=== PATIENT | female | born 1950 | race Two or more races ===

== ENCOUNTER → 2024-02-25 | Outpatient (CLI) | payer MEDICARE, SELFPAY ==
[2024-02-25 11:40] LABS: Glucose Estimated Average 192 mg/dL (80-131); Hemoglobin A1C 8.3 % Hgb (4.8-6.0)
[2024-02-25 11:50] LABS: Alanine Aminotransferase 34 U/L (10-49); Albumin, Serum 4.7 gm/dL (3.4-4.8); Albumin/Globulin Ratio 1.5 (1.2-2.2); Alkaline Phosphatase 96 U/L (46-116); Anion Gap 9 (7-16); Aspartate Amino Transferase 17 U/L (0-34); BUN/Creatinine Ratio 34 Ratio (12-20); Bilirubin,Total 0.5 mg/dL (0.3-1.2); Blood Urea Nitrogen 27 mg/dL (9-23); Calcium 10.5 mg/dL (8.3-10.6); Calcium (Corrected) 10.5 mg/dL (8.5-10.1); Chloride 101 mMol/L (98-107); Cholesterol 186 mg/dL (132-200); Creatinine (Component) 0.8 mg/dL (0.6-1.3); Globulin 3.1 gm/dL (2.3-3.5); Glucose 145 mg/dL (74-106); HDL Cholesterol 62 mg/dL (40-60); LDL Cholesterol,Calculated 90 mg/dL (0-130); Osmolality,Calculated 278 (275-295); Potassium 4.8 mMol/L (3.4-5.1); Sodium 135 mMol/L (136-145); Total Protein 7.8 gm/dL (5.7-8.2); Triglycerides 170 mg/dL (30-150); eGFR > 60 See Note
[2024-02-25 11:53] LABS: Parathyroid Hormone Intact 135.8 pg/ml (18.5-88.0)
== END | disposition home or self-care (01) ==
PROVIDERS: PCP Internal Medicine; Referring Provider Internal Medicine; Visit Provider Internal Medicine
DX: E11.9 Type 2 diabetes mellitus without complications (principal); I10 Essential (primary) hypertension; E78.5 Hyperlipidemia, unspecified
CPT/HCPCS: 36415; 80053; 80061; 83036; 83970

== ENCOUNTER 2024-03-15 10:18 | Outpatient (RCR) | payer MEDICARE, SELFPAY ==
--- NOTE | 2024-03-15 11:22 | CTCFLWUP_ITS ---
Patient: INDIANA VICENTE : 1950 Page 2 of 2 FOLLOW UP NOTE DATE OF SERVICE: 03/15/2024 NAME: INDIANA VICENTE ACCOUNT: [id number] : 1950 AGE: 73 INTERVAL HISTORY: Patient doing well have no new complaints. French-speaking so type photography supervisor was used during the visit. ONCOLOGY HISTORY: DIAGNOSIS: Iron deficiency anemia, unspecified [ICD10] D50.9 Thrombocytosis secondary to iron deficiency anemia resolved with Venofer infusions.. 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 Right breast cancer (2006) right mastectomy followed by adjuvant chemotherapy as well as 5 years of a nastrozole. Palpable left axillary lymph node. DATE OF DIAGNOSIS: 2006 STAGE/TNM: Right breast cancer s/p mastectomy followed by adjuvant chemotherapy as her adjuvant anastrozole. No radiation no clinical evidence of recurrence TREATMENT HISTORY: Care?Plan Start?Date Cycle Day Intent VENOfer?200mg?IV?wkly?for?10?weeks 07/03/2021 1 70 Palliative HISTORY OF PRESENT ILLNESS: Indiana Vicente is a 73-year-old SPA speaking female with following history [facility].. 2006: Patient had right mastectomy done for right breast cancer. She was treated with adjuvant chemo therapy followed by adjuvant anastrozole for about 5 years. She did not get radiation therapy. Dr. Merchant was her oncologist. 2013: Patient had a colonoscopy done here in [place]. She does not know the name of her gastroen terologist 04/25/2021: Platelet count 891,000, hemoglobin 10.6, MCV 79, WBC 9.0, ANC 5.1. 06/07/2021: Platelet count 482,000, WBC 10.0, ANC 6.3, hemoglobin 9.1, MCV 73, iron saturation 3%, lambert ritin 8, JAK2 mutation analysis and MPN panel negative for myeloproliferative disorder. 06/20/2021: Platelet count 688,000, WBC 7.6, ANC 4.0, hemoglobin 9.9, MCV 75. 07/03/2021?09/17/2021: The patient had 2 g of Venofer infusions.. 08/02/2021: Platelet count 580,000, WBC 6.6, ANC 3.2, hemoglobin 11.8, MCV 81. 12/11/2021: EGD and colonoscopy? 12/18/2021: Hemoglobin 13.7, MCV 92, WBC 8.0, ANC 4.8, platelets 398,000, iron saturation 37%, ferriti n 365. 01/03/2023: Left breast ultrasound? 02/28/2023: Repeat left breast ultrasound 03/07/2023: Left breast mammogram? 05/07/2023: Left axillary sonography for biopsy? 09/08/2023: Platelet count 338,000, hemoglobin 14.3, MCV 90, WBC 8.0, ANC 3.8. 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 atorvastatin - 40 mg 1 tab Daily 2. diclofenac sodium - 1 12 Every 12 Hours 3. Farxiga - 5 mg 1 tab Daily 4. glipiZIDE - 10 mg 1 tab Twice a Day 5. levothyroxine - 75 mcg 1 tab Daily 6. lisinopril - 20 mg 1 tab Twice a Day 7. metFORMIN - 850 mg 1 tab Twice a Day 8. multivitamin - 1 tab Daily 9. Ozempic - 1 mg/dose (2 mg/1.5 mL) 1 mg Weekly 10. Synthroid - 200 mcg 1 tab Daily 11. Tylenol - 325 mg 1 tab Every 4 Hours Medications Last Reconciled by Damari Rivera MA on 03/15/2024 ALLERGIES: No Known Drug Allergies REVIEW OF SYSTEMS: A complete 14-point review of systems was performed and is negative except as noted in interval histo ry. PHYSICAL EXAMINATION: VITAL SIGNS: Temperature?98.7, B/P?128/72, Oxygen?Saturation?97% Weight?121?lbs PAIN: 3 - Between mild and moderate pain ECOG Performance Status: 0 - Asymptomatic and fully active GENERAL APPEARANCE: Appears well, in no apparent distress, appropriately interactive. HEENT: Normocephalic, no temporal wasting, normal conjunctiva, no scleral icterus, normal hearing, li ps without lesions, neck normal range of motion. CARDIOVASCULAR: Not assessed. PULMONARY: Normal respiratory effort, no respiratory distress or use of accessory muscles, speaking i n full sentences, no tachypnea. EXTREMITIES: No pedal edema or cyanosis. SKIN: Normal skin appearance. NEUROLOGIC: Alert and oriented x4. PSHYCHIATRIC: Appropriate affect, mood normal, behavior normal, intact thought and speech. LABORATORY DATA: I have personally reviewed and interpreted each of the patient?s relevant lab tests, abnormal finding s are below: Date 02/25/24 ??GLUCOSE,RANDOM?(mg/dL) 145?H ??BLOOD?UREA?NITROGEN?(mg/dL) 27?H ??CREATININE?(mg/dL) 0.80 ??SODIUM?(mmol/L) 135?L ??POTASSIUM?(mmol/L) 4.8 ??CHLORIDE?(mmol/L) 101 ??CrCl?(CandG)?(ml/min) 56.81 ??AST/SGOT?(Unit/L) 17 ??ALT/SGPT?(Unit/L) 34 ??ALKALINE?PHOSPHATASE?(Unit/L) 96 ??BILIRUBIN,?TOTAL?(mg/dL) 0.5 ??PROTEIN?TOTAL?(gm/dl) 7.8 ??ALBUMIN,?SERUM?(gm/dl) 4.7 ??GLOBULIN?(gm/dl) 3.1 ??ALBUMIN/GLOBULIN?RATIO 1.5 ??CALCIUM,?SERUM?(mg/dL) 10.5 ??CALCIUM?SERUM?(CORRECTED)?(mg/dL) 10.5?H ASSESSMENT/PLAN: #1 history of iron deficiency no evidence of myeloproliferative disorder. JAK2 mutation as well as MPN panel negative. No CBC today available Ordered labs #2 history of right breast cancer in 2006. Patient had right mastectomy followed by adjuvant chemoth erapy as well as adjuvant anastrozole for 5 years. She did not get radiation therapy. No clinical e vidence of recurrence. Patient have hypercalcemia today. Will repeat labs if patient have persistent hypercalcemia will nee d bone scan to evaluate for any bone metastasis. 1. Patient is scheduled for repeat ultrasound of the left breast as well as left axilla in 6 months a s well as left breast diagnostic mammogram at that time, April 2024 RTC in 1 week to review CBC CMP CBC CMP CA 15-3 RETURN TO CLINIC: Video appointment in 1 week BILLING AND COMPLIANCE: I reviewed external records from providers outside my specialty as summarized above. I spent a total of 50 minutes on this patient?s care on the day of their visit excluding time spent related to any bi lled procedures. This time includes time spent with the patient as well as time spent documenting in the medical record, reviewing patients records and tests, obtaining history, placing orders, communi cating with other healthcare professionals, counseling the patient, family or caregiver, and/or care coordination for the diagnoses above. Electronically Signed by: Isiah Lombardi MD T: 11:20 AM CC: PCP: Samina Levin Referring: Samina Levin This document was completed utilizing speech recognition software. Grammatical errors, random word in sertions, pronoun errors, and incomplete sentences are an occasional consequence of this system due t o software limitations, ambient noise, and hardware issues. Any formal questions or concerns about th e content, text or information contained within the body of this dictation should be directly address ed to the provider for clarification.
== END 2024-03-19 23:59 | disposition home or self-care (01) ==
LOC: SCTC 10:18
PROVIDERS: PCP Internal Medicine; Referring Provider Internal Medicine; Visit Provider Internal Medicine Hematology & Oncology
DX: Z09 Encounter for follow-up examination after completed treatment for conditions other than malignant neoplasm (principal); Z86.2 Personal history of diseases of the blood and blood-forming organs and certain disorders involving the immune mechanism; Z85.3 Personal history of malignant neoplasm of breast; Z90.11 Acquired absence of right breast and nipple; Z92.21 Personal history of antineoplastic chemotherapy; E83.52 Hypercalcemia
CPT/HCPCS: 99213; G0463

== ENCOUNTER → 2024-03-15 | Outpatient (CLI) | payer OTHER, MEDICAID, SELFPAY ==
[2024-03-15 15:29] LABS: Basophils # (Auto) 0.1 Thou/mm3 (0.0-0.2); Basophils % (Auto) 1 % (0-2.5); Eosinophils # (Auto) 0.4 Thou/mm3 (0.0-0.5); Eosinophils % (Auto) 3 % (0-10); Hematocrit 36.8 % (36.0-46.0); Hemoglobin 12.2 g/dL (12.0-16.0); Immature Granulocytes % (Auto) 0 % (0-0); Immature Granulocytes Auto 0.02 Thou/mm3 (0.00-0.00); Lymphocytes # (Auto) 3.1 Thou/mm3 (1.0-4.8); Lymphocytes % (Auto) 31 % (10-50); Mean Corpuscular HGB Conc 33.2 g/dl (31.0-37.0); Mean Corpuscular Volume 90 fL (80-100); Monocytes # (Auto) 0.8 Thou/mm3 (0.0-0.8); Monocytes % (Auto) 8 % (0-12); Neutrophils # (Auto) 5.8 Thou/mm3 (1.8-7.7); Neutrophils % (Auto) 58 % (37-80); Nucleated Red Blood Cell % 0 /100 WBC (0); Platelet Count 355 Thou/mm3 (140-440); RDW Standard Deviation 45.2 fL (36.4-46.3); Red Blood Count 4.07 Miln/mm3 (4.00-5.20); White Blood Count 10.2 Thou/mm3 (3.6-11.0)
[2024-03-15 16:00] LABS: Alanine Aminotransferase 26 U/L (10-49); Albumin, Serum 4.2 gm/dL (3.4-4.8); Albumin/Globulin Ratio 1.6 (1.2-2.2); Alkaline Phosphatase 108 U/L (46-116); Anion Gap 7 (7-16); Aspartate Amino Transferase 11 U/L (0-34); BUN/Creatinine Ratio 21 Ratio (12-20); Bilirubin,Total 0.4 mg/dL (0.3-1.2); Blood Urea Nitrogen 21 mg/dL (9-23); Calcium 10.1 mg/dL (8.3-10.6); Calcium (Corrected) 10.1 mg/dL (8.5-10.1); Chloride 99 mMol/L (98-107); Globulin 2.7 gm/dL (2.3-3.5); Glucose 261 mg/dL (74-106); Osmolality,Calculated 276 (275-295); Potassium 4.9 mMol/L (3.4-5.1); Sodium 132 mMol/L (136-145); Total Protein 6.9 gm/dL (5.7-8.2); eGFR > 60 See Note
[2024-03-15 16:13] LABS: CA 15-3 10.3 U/mL (<32.4)
== END | disposition home or self-care (01) ==
PROVIDERS: PCP Internal Medicine; Referring Provider Internal Medicine Hematology & Oncology; Visit Provider Internal Medicine Hematology & Oncology
DX: D50.9 Iron deficiency anemia, unspecified (principal)
CPT/HCPCS: 36415; 80053; 85025; 86300

== ENCOUNTER 2024-03-22 11:43 | Outpatient (RCR) | payer MEDICARE, MEDICAID, SELFPAY ==
--- NOTE | 2024-03-22 22:16 | CTCFLWUP_ITS ---
Patient: INDIANA VICENTE : 1950 Page 6 of 7 FOLLOW UP NOTE DATE OF SERVICE: 03/22/2024 NAME: INDIANA VICENTE ACCOUNT: [id number] : 1950 AGE: 74 INTERVAL HISTORY: Patient doing well have no new complaints. Yakut-speaking so inbound sales advisor was used during the visit.patient was found to have elevated calcium . labs were done and here to discuss the results. ONCOLOGY HISTORY: DIAGNOSIS: Iron deficiency anemia, unspecified [ICD10] D50.9 Thrombocytosis secondary to iron deficiency anemia resolved with Venofer infusions.. 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 Right breast cancer (2006) right mastectomy followed by adjuvant chemotherapy as well as 5 years of anastrozole. Palpable left axillary lymph node. Hyperparathyroidism DATE OF DIAGNOSIS: 2006 STAGE/TNM: Right breast cancer s/p mastectomy followed by adjuvant chemotherapy as her adjuvant anastrozole. No radiation no clinical evidence of recurrence TREATMENT HISTORY: Care?Plan Start?Date Cycle Day Intent VENOfer?200mg?IV?wkly?for?10?weeks 07/03/2021 1 70 Palliative Zoledronic?Acid?4?mg 03/22/2024 1 90 Maintenance HISTORY OF PRESENT ILLNESS: Indiana Vicente is a 74-year-old SPA speaking female with following history is referred to hematology clinic for thrombocytosis.. 2006: Patient had right mastectomy done for right breast cancer. She was treated with adjuvant chemotherapy followed by adjuvant anastrozole for about 5 years. She did not get radiation therapy. Dr. Merchant was her oncologist. 2013: Patient had a colonoscopy done here in [place]. She does not know the name of her fha underwriter 04/25/2021: Platelet count 891,000, hemoglobin 10.6, MCV 79, WBC 9.0, ANC 5.1. 06/07/2021: Platelet count 482,000, WBC 10.0, ANC 6.3, hemoglobin 9.1, MCV 73, iron saturation 3%, ferritin 8, JAK2 mutation analysis and MPN panel negative for myeloproliferative disorder. 06/20/2021: Platelet count 688,000, WBC 7.6, ANC 4.0, hemoglobin 9.9, MCV 75. 07/03/2021?09/17/2021: The patient had 2 g of Venofer infusions.. 08/02/2021: Platelet count 580,000, WBC 6.6, ANC 3.2, hemoglobin 11.8, MCV 81. 12/11/2021: EGD and colonoscopy? 12/18/2021: Hemoglobin 13.7, MCV 92, WBC 8.0, ANC 4.8, platelets 398,000, iron saturation 37%, ferritin 365. 01/03/2023: Left breast ultrasound? 02/28/2023: Repeat left breast ultrasound 03/07/2023: Left breast mammogram? 05/07/2023: Left axillary sonography for biopsy? 09/08/2023: Platelet count 338,000, hemoglobin 14.3, MCV 90, WBC 8.0, ANC 3.8. 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 atorvastatin - 40 mg 1 tab Daily 2. diclofenac sodium - 1 12 Every 12 Hours 3. Farxiga - 5 mg 1 tab Daily 4. glipiZIDE - 10 mg 1 tab Twice a Day 5. levothyroxine - 75 mcg 1 tab Daily 6. lisinopril - 20 mg 1 tab Twice a Day 7. metFORMIN - 850 mg 1 tab Twice a Day 8. multivitamin - 1 tab Daily 9. Ozempic - 1 mg/dose (2 mg/1.5 mL) 1 mg Weekly 10. Synthroid - 200 mcg 1 tab Daily 11. Tylenol - 325 mg 1 tab Every 4 Hours Medications Last Reconciled by Imelda Alarcon MA on 03/22/2024 ALLERGIES: No Known Drug Allergies REVIEW OF SYSTEMS: A complete 14-point review of systems was performed and is negative except as noted in interval history. PHYSICAL EXAMINATION: VITAL SIGNS: Temperature?98.9, B/P?141/69, Oxygen?Saturation?97% Weight?123?lbs (Change?since?03/15/24:?2?lbs) PAIN: 8 - Very severe pain ECOG Performance Status: 0 - Asymptomatic and fully active GENERAL APPEARANCE: Appears well, in no apparent distress, appropriately interactive. HEENT: Normocephalic, no temporal wasting, normal conjunctiva, no scleral icterus, normal hearing, lips without lesions, neck normal range of motion. CARDIOVASCULAR: Not assessed. PULMONARY: Normal respiratory effort, no respiratory distress or use of accessory muscles, speaking in full sentences, no tachypnea. EXTREMITIES: No pedal edema or cyanosis. SKIN: Normal skin appearance. NEUROLOGIC: Alert and oriented x4. PSHYCHIATRIC: Appropriate affect, mood normal, behavior normal, intact thought and speech. LABORATORY DATA: I have personally reviewed and interpreted each of the patient?s relevant lab tests, abnormal findings are below: Date 03/15/24 ??WHITE?BLOOD?COUNT?(Thou/mm3) 10.2 ??RED?BLOOD?COUNT?(Miln/mm3) 4.07 ??HEMOGLOBIN?(gm/dl) 12.2 ??HEMATOCRIT?(%) 36.8 ??PLATELET?COUNT?(Thou/mm3) 355 ??NEUTROPHILS?%,?AUTO?(%) 58 ??LYMPH?%,?AUTO?(%) 31 ??NEUTROPHILS,?AUTO?(Thou/mm3) 5.8 ASSESSMENT/PLAN: #1 history of iron deficiency no evidence of myeloproliferative disorder. JAK2 mutation as well as MPN panel negative. #2 history of right breast cancer in 2006. Patient had right mastectomy followed by adjuvant chemotherapy as well as adjuvant anastrozole for 5 years. She did not get radiation therapy. No clinical evidence of recurrence. Patient have hypercalcemia today. Will repeat labs if patient have persistent hypercalcemia will need bone scan to evaluate for any bone metastasis. #3 Hyperthyroidism PTH elevated Calcium normal Refer to endocrinology ORDERS: Cbc,cmp,calcium Nuclear bone scan Dental evaluation for zometa RETURN TO CLINIC: BILLING AND COMPLIANCE: I reviewed external records from providers outside my specialty as summarized above. I spent a total of 50 minutes on this patient?s care on the day of their visit excluding time spent related to any billed procedures. This time includes time spent with the patient as well as time spent documenting in the medical record, reviewing patients records and tests, obtaining history, placing orders, communicating with other healthcare professionals, counseling the patient, family or caregiver, and/or care coordination for the diagnoses above. Electronically Signed by: Isiah Lombardi MD T: 10:14 PM CC: PCP: Samina Levin Referring: Samina Levin This document was completed utilizing speech recognition software. Grammatical errors, random word insertions, pronoun errors, and incomplete sentences are an occasional consequence of this system due to software limitations, ambient noise, and hardware issues. Any formal questions or concerns about the content, text or information contained within the body of this dictation should be directly addressed to the provider for clarification.
== END 2024-04-16 23:59 | disposition home or self-care (01) ==
LOC: SCTC 11:43
PROVIDERS: PCP Internal Medicine; Referring Provider Internal Medicine; Visit Provider Internal Medicine Hematology & Oncology
DX: Z71.2 Person consulting for explanation of examination or test findings (principal); E83.52 Hypercalcemia; Z85.3 Personal history of malignant neoplasm of breast; Z90.11 Acquired absence of right breast and nipple; E05.90 Thyrotoxicosis, unspecified without thyrotoxic crisis or storm; Z86.2 Personal history of diseases of the blood and blood-forming organs and certain disorders involving the immune mechanism
CPT/HCPCS: 99212; G0463

== ENCOUNTER → 2024-04-07 | Outpatient (CLI) | payer MEDICARE, MEDICAID, SELFPAY ==
--- NOTE | 2024-04-07 09:00 | XR_ITS ---
Examination: Knee, right , 3 views Technique: Knee AP, lateral, oblique 3 views Date and time of exam: April 07, 2024 0909 hours INDICATIONS: Right knee pain and swelling beginning one week ago FINDINGS: Total right knee arthroplasty. Satisfactory alignment. No loosening of the prosthetic components. No fracture Prominent osteopenia IMPRESSION: Total right knee arthroplasty with satisfactory alignment
== END | disposition home or self-care (01) ==
PROVIDERS: PCP Internal Medicine; Referring Provider Internal Medicine; Visit Provider Internal Medicine
DX: M25.561 Pain in right knee (principal); Z96.651 Presence of right artificial knee joint
CPT/HCPCS: 73562

== ENCOUNTER → 2024-04-27 | Outpatient (CLI) | payer MEDICARE, MEDICAID, SELFPAY ==
--- NOTE | 2024-04-27 13:30 | XR_ITS ---
Examination: Bone scan whole body, radioisotope Date and time of exam: April 27, 2024 1346 hrs. Indications: Diagnosis right breast carcinoma 2017 post mastectomy chemotherapy, bilateral knee pain Technique: Study has been performed with intravenous administration of 24 mci 99M technetium MDP. Anterior, posterior whole body images are obtained. Images have been obtained including the lower extremities. Findings: Abnormal increased uptake L3 L5 and at several sites in the thoracic spine as well as C4 on the left side in the neck Impression: Positive bone scan Recommend plain films AP pelvis, lumbar spine, thoracic spine, cervical spine follow-up
== END | disposition home or self-care (01) ==
PROVIDERS: PCP Internal Medicine; Referring Provider Internal Medicine Hematology & Oncology; Visit Provider Internal Medicine Hematology & Oncology
DX: R93.7 Abnormal findings on diagnostic imaging of other parts of musculoskeletal system (principal)
CPT/HCPCS: 78306; A9503

== ENCOUNTER → 2024-05-10 | Outpatient (CLI) | payer MEDICARE, MEDICAID, SELFPAY ==
--- NOTE | 2024-05-10 10:00 | XR_ITS ---
Examination: Breast ultrasound, unilateral, left complete Date and time of exam: May 10, 2024 1005 hours INDICATIONS: Personal history right breast cancer mastectomy 2006, prominent lymph nodes in the left axillary region on mammogram March 07, 2023 Technique: Real-time schmidt scale ultrasonographic imaging performed left breast including all 4 quadrants as well as nipple retroareolar and axillary region. Findings: No cystic or solid breast mass Left axillary lymph node 3.3 x 2.6 cm IMPRESSION: BI-RADS Category 3: Probably benign findings Recommend 1 additional 3-6 month follow-up left breast axillary sonography to document stability of enlarged left axillary lymph node
--- NOTE | 2024-05-10 10:30 | XR_ITS ---
Examination: Diagnostic digital mammography, unilateral, left Computer aided detection 3-D breast Tomosynthesis, unilateral Date and time of exam: May 10, 2024 0959 hours Compared to mammograms dating to January 09, 2021 INDICATIONS: Personal history right breast cancer status post mastectomy 2005 Technique: Nonmagnified MLO, CC views of the left breast have been obtained, reconstructed from 3-D Tomosynthesis images. R2 computer aided detection program utilized for evaluation of suspicious masses and/or abnormal calcifications. 3-D Tomosynthesis images obtained. Findings: The breast is heterogeneously dense, which may obscure small masses 8mm oval mass inner upper left breast partially marginated anterior depth Impression: BI-RADS category 0: Incomplete: Need additional imaging evaluation 8mm oval mass inner upper left breast, recommend follow-up spot tomographic views of this mass as well as left breast sonography to complete the workup
== END | disposition home or self-care (01) ==
PROVIDERS: PCP Internal Medicine; Referring Provider Internal Medicine Hematology & Oncology; Visit Provider Internal Medicine Hematology & Oncology
DX: N63.22 Unspecified lump in the left breast, upper inner quadrant (principal); R59.0 Localized enlarged lymph nodes
CPT/HCPCS: 76641; 77061; 77065; G0279

== ENCOUNTER → 2024-05-18 | Outpatient (CLI) | payer MEDICARE, MEDICAID, SELFPAY ==
[2024-05-18 08:37] LABS: Basophils % (Auto) 0 % (0-2.5); Eosinophils # (Auto) 0.1 Thou/mm3 (0.0-0.5); Eosinophils % (Auto) 1 % (0-10); Hematocrit 41.6 % (36.0-46.0); Hemoglobin 14.2 g/dL (12.0-16.0); Immature Granulocytes % (Auto) 0 % (0-0); Immature Granulocytes Auto 0.04 Thou/mm3 (0.00-0.00); Lymphocytes # (Auto) 2.9 Thou/mm3 (1.0-4.8); Lymphocytes % (Auto) 26 % (10-50); Mean Corpuscular HGB Conc 34.1 g/dl (31.0-37.0); Mean Corpuscular Volume 88 fL (80-100); Monocytes # (Auto) 0.6 Thou/mm3 (0.0-0.8); Monocytes % (Auto) 6 % (0-12); Neutrophils # (Auto) 7.4 Thou/mm3 (1.8-7.7); Neutrophils % (Auto) 67 % (37-80); Nucleated Red Blood Cell % 0 /100 WBC (0); Platelet Count 428 Thou/mm3 (140-440); RDW Standard Deviation 41.1 fL (36.4-46.3); Red Blood Count 4.73 Miln/mm3 (4.00-5.20)
[2024-05-18 08:56] LABS: Alanine Aminotransferase 58 U/L (10-49); Albumin, Serum 4.4 gm/dL (3.4-4.8); Albumin/Globulin Ratio 1.5 (1.2-2.2); Alkaline Phosphatase 72 U/L (46-116); Anion Gap 6 (7-16); Aspartate Amino Transferase 27 U/L (0-34); BUN/Creatinine Ratio 21 Ratio (12-20); Bilirubin,Total 0.6 mg/dL (0.3-1.2); Blood Urea Nitrogen 17 mg/dL (9-23); Calcium 9.4 mg/dL (8.3-10.6); Calcium (Corrected) 9.4 mg/dL (8.5-10.1); Carbon Dioxide 27.7 mMol/L (20.0-31.0); Chloride 100 mMol/L (98-107); Creatinine (Component) 0.8 mg/dL (0.6-1.3); Globulin 2.9 gm/dL (2.3-3.5); Glucose 179 mg/dL (74-106); Osmolality,Calculated 273 (275-295); Potassium 4.9 mMol/L (3.4-5.1); Sodium 134 mMol/L (136-145); Total Protein 7.3 gm/dL (5.7-8.2); eGFR > 60 See Note
== END | disposition home or self-care (01) ==
LOC: SCTO 07:53
PROVIDERS: PCP Internal Medicine; Referring Provider Internal Medicine Hematology & Oncology; Visit Provider Internal Medicine Hematology & Oncology
DX: D50.9 Iron deficiency anemia, unspecified (principal)
CPT/HCPCS: 36415; 80053; 85025

== ENCOUNTER → 2024-07-05 | Outpatient (CLI) | payer MEDICARE, MEDICAID, SELFPAY ==
[2024-07-05 09:17] LABS: Collection Type, Urine Clean Catch; RBC,Urine 0 /hpf (0-3); Squamous Epithelial Cell,Urine 0 /hpf (0-5)
[2024-07-05 10:01] LABS: Basophils # (Auto) 0.1 Thou/mm3 (0.0-0.2); Basophils % (Auto) 1 % (0-2.5); Eosinophils # (Auto) 0.4 Thou/mm3 (0.0-0.5); Eosinophils % (Auto) 5 % (0-10); Hematocrit 39.1 % (36.0-46.0); Hemoglobin 12.8 g/dL (12.0-16.0); Immature Granulocytes % (Auto) 0 % (0-0); Immature Granulocytes Auto 0.02 Thou/mm3 (0.00-0.00); Lymphocytes # (Auto) 2.9 Thou/mm3 (1.0-4.8); Lymphocytes % (Auto) 39 % (10-50); Mean Corpuscular HGB Conc 32.7 g/dl (31.0-37.0); Mean Corpuscular Volume 92 fL (80-100); Monocytes # (Auto) 0.5 Thou/mm3 (0.0-0.8); Monocytes % (Auto) 6 % (0-12); Neutrophils # (Auto) 3.5 Thou/mm3 (1.8-7.7); Neutrophils % (Auto) 48 % (37-80); Nucleated Red Blood Cell % 0 /100 WBC (0); Platelet Count 367 Thou/mm3 (140-440); RDW Standard Deviation 44.1 fL (36.4-46.3); Red Blood Count 4.26 Miln/mm3 (4.00-5.20); White Blood Count 7.4 Thou/mm3 (3.6-11.0)
[2024-07-05 10:28] LABS: Bilirubin,Urine Negative (Negative); Blood,Urine Negative (Negative); Clarity,Urine Clear (Clear/Hazy); Color,Urine Colorless (Lt Yel-Yel); Glucose, Urine Negative (Negative); Ketones,Urine Negative (Negative); Leukocyte Esterase,Urine Negative (Negative); Nitrite,Urine Negative (Negative); PH,Urine 6.5 (5.0-7.0); Protein,Urine Negative (Neg - Trace); Urobilinogen,Urine Negative mg/dL (0.0-1.0); WBC,Urine < 1 /hpf (0-5)
[2024-07-05 11:04] LABS: Glucose Estimated Average 166 mg/dL (80-131); Hemoglobin A1C 7.4 % Hgb (4.8-6.0)
[2024-07-05 11:06] LABS: Parathyroid Hormone Intact 88.1 pg/ml (18.5-88.0)
[2024-07-05 11:13] LABS: Alanine Aminotransferase 27 U/L (10-49); Albumin, Serum 4.4 gm/dL (3.4-4.8); Albumin/Globulin Ratio 1.5 (1.2-2.2); Alkaline Phosphatase 60 U/L (46-116); Anion Gap 8 (7-16); Aspartate Amino Transferase 22 U/L (0-34); BUN/Creatinine Ratio 19 Ratio (12-20); Bilirubin,Total 0.6 mg/dL (0.3-1.2); Blood Urea Nitrogen 13 mg/dL (9-23); Calcium 8.9 mg/dL (8.3-10.6); Calcium (Corrected) 8.9 mg/dL (8.5-10.1); Carbon Dioxide 24.9 mMol/L (20.0-31.0); Cardiac Risk Estimate 2.5 RATIO (3.7-5.6); Chloride 103 mMol/L (98-107); Cholesterol 161 mg/dL (132-200); Creatinine (Component) 0.7 mg/dL (0.6-1.3); Globulin 2.9 gm/dL (2.3-3.5); Glucose 141 mg/dL (74-106); HDL Cholesterol 65 mg/dL (40-60); LDL Cholesterol,Calculated 77 mg/dL (0-130); Osmolality,Calculated 274 (275-295); Potassium 4.7 mMol/L (3.4-5.1); Sodium 136 mMol/L (136-145); Total Protein 7.3 gm/dL (5.7-8.2); Triglycerides 97 mg/dL (30-150); eGFR > 60 See Note
[2024-07-05 11:30] LABS: Creatinine MALB Rnd Ur 33 mg/dL (30-125); Microalbumin Creat Ratio 12 mg/gCrea (<30); Microalbumin, Random Urine 4 mg/L (0-300)
== END | disposition home or self-care (01) ==
PROVIDERS: PCP Internal Medicine; Referring Provider Internal Medicine; Visit Provider Internal Medicine
DX: E11.9 Type 2 diabetes mellitus without complications (principal); I10 Essential (primary) hypertension; E78.5 Hyperlipidemia, unspecified
CPT/HCPCS: 36415; 80053; 80061; 81001; 82043; 82570; 83036; 83970; 85025

== ENCOUNTER → 2024-07-07 | Outpatient (CLI) | payer MEDICARE, MEDICAID, SELFPAY ==
[2024-07-07 08:33] LABS: Basophils # (Auto) 0.1 Thou/mm3 (0.0-0.2); Basophils % (Auto) 1 % (0-2.5); Eosinophils # (Auto) 0.4 Thou/mm3 (0.0-0.5); Eosinophils % (Auto) 6 % (0-10); Hematocrit 37.5 % (36.0-46.0); Hemoglobin 12.8 g/dL (12.0-16.0); Immature Granulocytes % (Auto) 0 % (0-0); Immature Granulocytes Auto 0.01 Thou/mm3 (0.00-0.00); Lymphocytes # (Auto) 3.3 Thou/mm3 (1.0-4.8); Lymphocytes % (Auto) 45 % (10-50); Mean Corpuscular HGB Conc 34.1 g/dl (31.0-37.0); Mean Corpuscular Hemoglobin 30.1 pg (25.0-35.0); Mean Corpuscular Volume 88 fL (80-100); Monocytes # (Auto) 0.5 Thou/mm3 (0.0-0.8); Monocytes % (Auto) 8 % (0-12); Neutrophils # (Auto) 2.9 Thou/mm3 (1.8-7.7); Neutrophils % (Auto) 40 % (37-80); Nucleated Red Blood Cell % 0 /100 WBC (0); Platelet Count 328 Thou/mm3 (140-440); RDW Standard Deviation 42.2 fL (36.4-46.3); Red Blood Count 4.25 Miln/mm3 (4.00-5.20); White Blood Count 7.2 Thou/mm3 (3.6-11.0)
[2024-07-07 08:47] LABS: Alanine Aminotransferase 28 U/L (10-49); Albumin, Serum 4.4 gm/dL (3.4-4.8); Albumin/Globulin Ratio 1.6 (1.2-2.2); Alkaline Phosphatase 68 U/L (46-116); Anion Gap 8 (7-16); Aspartate Amino Transferase 18 U/L (0-34); BUN/Creatinine Ratio 18 Ratio (12-20); Bilirubin,Total 0.6 mg/dL (0.3-1.2); Blood Urea Nitrogen 14 mg/dL (9-23); Calcium 9.3 mg/dL (8.3-10.6); Calcium (Corrected) 9.3 mg/dL (8.5-10.1); Chloride 101 mMol/L (98-107); Creatinine (Component) 0.8 mg/dL (0.6-1.3); Globulin 2.7 gm/dL (2.3-3.5); Glucose 139 mg/dL (74-106); Osmolality,Calculated 274 (275-295); Potassium 5.3 mMol/L (3.4-5.1); Sodium 136 mMol/L (136-145); Total Protein 7.1 gm/dL (5.7-8.2); eGFR > 60 See Note
== END | disposition home or self-care (01) ==
LOC: SCTO 07:45
PROVIDERS: PCP Internal Medicine; Referring Provider Internal Medicine Hematology & Oncology; Visit Provider Internal Medicine Hematology & Oncology
DX: D50.9 Iron deficiency anemia, unspecified (principal)
CPT/HCPCS: 36415; 80053; 85025

== ENCOUNTER 2024-07-13 10:57 | Outpatient (RCR) | payer MEDICARE, MEDICAID, SELFPAY ==
--- NOTE | 2024-07-08 14:18 | CTCFLWUP_ITS ---
Patient: INDIA[place] VICENTE : 1950 Page 2 of 2 FOLLOW UP NOTE DATE OF SERVICE: 07/01/2024 NAME: INDIANA VICENTE ACCOUNT: [id number] : 1950 AGE: 74 INTERVAL HISTORY: Occitan-speaking so switch coupler was used during the visit. Subjective: Chief Complaint Follow-up for iron deficiency, breast cancer management, bone health concerns History of Present Illness Jules mane, a patient with a history of right breast cancer treated with right mastectomy, chemotherapy, and 5 years of letrozole, presents for follow-up of iron deficiency and ongoing cancer care. The patient has a history of left axillary lymph node involvement and received iron infusions for 10 weeks in 2021. The patient's iron deficiency appears to be improving, with hemoglobin now at 14.2. However, there are concerns about possible absorption issues or colon blood loss. The patient previously underwent colonoscopy and endoscopy, which revealed polyps and an ulcer. These were treated with Protonix for 3 months, which has since been discontinued. The patient currently reports no acid reflux symptoms. The patient is experiencing bone pain, likely due to weak bones and lack of exercise. Menopause has contributed to bone weakening. The patient's calcium levels are elevated, and their parathyroid hormone (PTH) level was abnormally high at 135.8, indicating hyperparathyroidism. They are currently taking cinacalcet 60 mg for this condition. Treatment adherence is noted, with the patient having completed iron infusions as prescribed. However, the planned start of zoledronic acid (Zometa) for bone health in March 2024 was delayed due to dental clearance issues. The patient is awaiting dental clearance to begin this treatment. The patient has an upcoming referral to an service delivery management consultant scheduled for January. Their platelets, which were previously elevated, have improved following the resolution of iron deficiency. Medications and Supplements - Letrozole - Taken for 5 years - Iron infusions - Administered for 10 weeks in 2021 - Protonix - Taken for 3 months - Discontinued - Treated polyps and ulcer - Cinacalcet 60 mg Review of Systems Musculoskeletal: Positive for bone pain. Gastrointestinal: Negative for acid reflux. Objective: Laboratory, Imaging, and Diagnostic Test Results - Hemoglobin: 14.2 g/dL (improved) - Platelets: Improved (previously elevated) - PTH: 135.8 (abnormal, elevated) - Calcium: High - Bone scan: Nonspecific activity in L3-L5 - Previous colonoscopy and endoscopy: Polyps and ulcer found ONCOLOGY HISTORY:?[facility] Oncology Hx? DIAGNOSIS: Iron deficiency anemia, unspecified [ICD10] D50.9 Thrombocytosis secondary to iron deficiency anemia resolved with Venofer infusions.. 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 Right breast cancer (2006) right mastectomy followed by adjuvant chemotherapy as well as 5 years of anastrozole. Palpable left axillary lymph node. Hyperparathyroidism DATE OF DIAGNOSIS: 2006 STAGE/TNM: Right breast cancer s/p mastectomy followed by adjuvant chemotherapy as her adjuvant anastrozole. No radiation no clinical evidence of recurrence TREATMENT HISTORY: Care?Plan Start?Date Cycle Day Intent VENOfer?200mg?IV?wkly?for?10?weeks 07/03/2021 1 70 Palliative Zoledronic?Acid?4?mg 03/22/2024 1 90 Maintenance HISTORY OF PRESENT ILLNESS: [place] Vicente is a 74-year-old S[place] speaking female with following history is referred to hematology clinic for thrombocytosis.. 2006: Patient had right mastectomy done for right breast cancer. She was treated with adjuvant chemotherapy followed by adjuvant anastrozole for about 5 years. She did not get radiation therapy. Dr. Merchant was her oncologist. 2013: Patient had a colonoscopy done here in [place]. She does not know the name of her rn transfer 04/25/2021: Platelet count 891,000, hemoglobin 10.6, MCV 79, WBC 9.0, ANC 5.1. 06/07/2021: Platelet count 482,000, WBC 10.0, ANC 6.3, hemoglobin 9.1, MCV 73, iron saturation 3%, ferritin 8, JAK2 mutation analysis and MPN panel negative for myeloproliferative disorder. 06/20/2021: Platelet count 688,000, WBC 7.6, ANC 4.0, hemoglobin 9.9, MCV 75. 07/03/2021?09/17/2021: The patient had 2 g of Venofer infusions.. 08/02/2021: Platelet count 580,000, WBC 6.6, ANC 3.2, hemoglobin 11.8, MCV 81. 12/11/2021: EGD and colonoscopy? 12/18/2021: Hemoglobin 13.7, MCV 92, WBC 8.0, ANC 4.8, platelets 398,000, iron saturation 37%, ferritin 365. 01/03/2023: Left breast ultrasound? 02/28/2023: Repeat left breast ultrasound 03/07/2023: Left breast mammogram? 05/07/2023: Left axillary sonography for biopsy? 09/08/2023: Platelet count 338,000, hemoglobin 14.3, MCV 90, WBC 8.0, ANC 3.8. 10/06/2023: CT scan of the chest without IV contrast 10/28/2003: Ultrasound of the left breast 10/28/2023: Left breast diagnostic mammogram OTHER MEDICAL HISTORY/CONDITIONS: FAMILY HISTORY: ?Clone Family Hx? 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 atorvastatin - 40 mg 1 tab Daily 2. diclofenac sodium - 1 12 Every 12 Hours 3. Farxiga - 5 mg 1 tab Daily 4. glipiZIDE - 10 mg 1 tab Twice a Day 5. levothyroxine - 75 mcg 1 tab Daily 6. lisinopril - 20 mg 1 tab Twice a Day 7. metFORMIN - 850 mg 1 tab Twice a Day 8. multivitamin - 1 tab Daily 9. Ozempic - 1 mg/dose (2 mg/1.5 mL) 1 mg Weekly 10. Synthroid - 200 mcg 1 tab Daily 11. Tylenol - 325 mg 1 tab Every 4 Hours?[facility] Meds? Medications Last Reconciled by Damari Rivera MA on 07/01/2024 (Reconcile on Approval: ?) ALLERGIES: No Known Drug Allergies REVIEW OF SYSTEMS: A complete 14-point review of systems was performed and is negative except as noted in interval history. PHYSICAL EXAMINATION:?[facility]oneBlock PE? VITAL SIGNS: PAIN: 1 - Between no and mild pain ECOG Performance Status: None GENERAL APPEARANCE: Appears well, in no apparent distress, appropriately interactive. HEENT: Normocephalic, no temporal wasting, normal conjunctiva, no scleral icterus, normal hearing, lips without lesions, neck normal range of motion. CARDIOVASCULAR: Not assessed. PULMONARY: Normal respiratory effort, no respiratory distress or use of accessory muscles, speaking in full sentences, no tachypnea. EXTREMITIES: No pedal edema or cyanosis. SKIN: Normal skin appearance. NEUROLOGIC: Alert and oriented x4. PSHYCHIATRIC: Appropriate affect, mood normal, behavior normal, intact thought and speech. LABORATORY DATA: I have personally reviewed and interpreted each of the patient?s relevant lab tests, abnormal findings are below: Date 07/05/24 07/07/24 ??WHITE?BLOOD?COUNT?(Thou/mm3) 7.4 7.2 ??RED?BLOOD?COUNT?(Miln/mm3) 4.26 4.25 ??HEMOGLOBIN?(gm/dl) 12.8 12.8 ??HEMATOCRIT?(%) 39.1 37.5 ??PLATELET?COUNT?(Thou/mm3) 367 328 ??NEUTROPHILS?%,?AUTO?(%) 48 40 ??LYMPH?%,?AUTO?(%) 39 45 ??NEUTROPHILS,?AUTO?(Thou/mm3) 3.5 2.9 ??GLUCOSE,RANDOM?(mg/dL) 141?H 139?H ??BLOOD?UREA?NITROGEN?(mg/dL) 13 14 ??CREATININE?(mg/dL) 0.70 0.80 ??SODIUM?(mmol/L) 136 136 ??POTASSIUM?(mmol/L) 4.7 5.3?H ??CHLORIDE?(mmol/L) 103 101 ??AST/SGOT?(Unit/L) 22 18 ??ALT/SGPT?(Unit/L) 27 28 ??ALKALINE?PHOSPHATASE?(Unit/L) 60 68 ??BILIRUBIN,?TOTAL?(mg/dL) 0.6 0.6 ??PROTEIN?TOTAL?(gm/dl) 7.3 7.1 ??ALBUMIN,?SERUM?(gm/dl) 4.4 4.4 ??GLOBULIN?(gm/dl) 2.9 2.7 ??ALBUMIN/GLOBULIN?RATIO 1.5 1.6 ??CALCIUM,?SERUM?(mg/dL) 8.9 9.3 ??CALCIUM?SERUM?(CORRECTED)?(mg/dL) 8.9 9.3 ASSESSMENT/PLAN:?Stephan Lombardi Assessment/Plan? Assessment and Plan: Jules mane, female patient with history of right breast cancer, right mastectomy, chemotherapy, and left axillary lymph node involvement, presenting for follow-up of iron deficiency and bone health management. Iron Deficiency Anemia Assessment: Patient has a history of iron deficiency anemia, treated with iron infusions for 10 weeks in 2021. Recent labs show improvement with hemoglobin at 14.2. Platelets were previously elevated but have now improved, likely due to resolution of iron deficiency. There is concern for possible ongoing iron loss or absorption issues. Previous endoscopy and colonoscopy revealed polyps and an ulcer, which were treated with Protonix for 3 months. Protonix has been discontinued, and the patient currently reports no acid reflux symptoms. Plan: - Check iron levels - Consider colonoscopy to evaluate for potential colon blood loss - Recommend eating before coffee to avoid stomach acid issues - Monitor stool color for signs of blood loss - Schedule labs in December, 10 days before next visit - Encourage proper nutrition and hydration - Consider multivitamins (e.g., Centrum Silver) and protein shakes (e.g., Premier Protein) Breast Cancer History Assessment: Patient has a history of right breast cancer treated with right mastectomy, chemotherapy, and 5 years of letrozole. Left axillary lymph node involvement was noted. Ongoing surveillance is necessary. Plan: - Mammogram ordered - Schedule next mammogram in 6 months - Consider Pap smear if not recently done Osteoporosis / Bone Health Assessment: Patient has weak bones, likely due to menopause and lack of exercise. Bone scan showed nonspecific activity in L3-L5. Calcium levels are elevated (135.8), indicating rapid bone metabolism. PTH level of 135.8 suggests hyperparathyroidism, contributing to bone loss. Patient is currently on ci nacalcet 60 mg for hyperparathyroidism management, but this will not reverse the bone loss process. Plan: - Schedule Zoledronic acid (Zometa) injection for bone health - Obtain dental clearance before starting - Administer every 6 months initially, with potential to adjust to every 3 months if needed - Inform patient of potential initial increase in bone pain and offer Benadryl for management - Educate on the importance of hydration before and after infusion - Start bone density medication - Recommend calcium and vitamin D supplements - Encourage light exercise and stretching - Follow up on bone scan with plain images of L3-L5 - Monitor calcium levels closely, expected to drop after Zometa administration Hyperparathyroidism Assessment: Patient has elevated PTH (135.8) and high calcium levels, indicating hyperparathyroidism. This condition is contributing to rapid bone metabolism and bone loss. Current treatment with cinacalcet 60 mg is not expected to reverse the process. Plan: - Continue cinacalcet 60 mg (dose and frequency not specified) - Referral to service delivery management consultant scheduled for January - Monitor calcium and PTH levels ORDERS: Order # Description [id number] Basic Metabolic Panel [id number] Lab Appointment [id number] Infusion 1 Hour [id number] Basic Metabolic Panel [id number] Lab Appointment [id number] Infusion 1 Hour [id number] 3D Mammogram Screening + Bilateral [id number] MD Follow Up 6 Month [id number] Ferritin + Iron Panel + Reticulocyte Count + Sedimentation Rate + Vitamin B-12 + Folic Acid; Serum + Lactate Dehydrogenase (LDH) + Assay Of Haptoglobin Quant [id number] Basic Metabolic Panel [id number] Lab Appointment [id number] Infusion 1 Hour [id number] Basic Metabolic Panel [id number] Lab Appointment [id number] Infusion 1 Hour [id number] Basic Metabolic Panel [id number] Lab Appointment [id number] Infusion 1 Hour [id number] Basic Metabolic Panel [id number] Lab Appointment [id number] Infusion 1 Hour [id number] Basic Metabolic Panel [id number] Lab Appointment [id number] Infusion 1 Hour [id number] Basic Metabolic Panel [id number] Lab Appointment [id number] Infusion 1 Hour [id number] Basic Metabolic Panel [id number] Lab Appointment [id number] Infusion 1 Hour [id number] Basic Metabolic Panel [id number] Lab Appointment [id number] Infusion 1 Hour [id number] Basic Metabolic Panel [id number] Lab Appointment RETURN TO CLINIC: BILLING AND COMPLIANCE: I reviewed external records from providers outside my specialty as summarized above. I spent a total of 50 minutes on this patient?s care on the day of their visit excluding time spent related to any billed procedures. This time includes time spent with the patient as well as time spent documenting in the medical record, reviewing patients records and tests, obtaining history, placing orders, communicating with other healthcare professionals, counseling the patient, family or caregiver, and/or care coordination for the diagnoses above. Electronically Signed by: Isiah Lombardi MD T: 12:59 PM CC: PCP: Isiah Lombardi Referring: Samina Levin This document was completed utilizing speech recognition software. Grammatical errors, random word insertions, pronoun errors, and incomplete sentences are an occasional consequence of this system due to software limitations, ambient noise, and hardware issues. Any formal questions or concerns about the content, text or information contained within the body of this dictation should be directly addressed to the provider for clarification.
== END 2024-07-17 23:59 | disposition home or self-care (01) ==
LOC: SCTC 10:57
PROVIDERS: PCP Internal Medicine; Referring Provider Internal Medicine; Visit Provider Internal Medicine Hematology & Oncology
DX: D50.9 Iron deficiency anemia, unspecified (principal); M81.0 Age-related osteoporosis without current pathological fracture; E21.3 Hyperparathyroidism, unspecified; Z85.3 Personal history of malignant neoplasm of breast; Z90.11 Acquired absence of right breast and nipple; Z92.21 Personal history of antineoplastic chemotherapy
CPT/HCPCS: 84132; 99212; J3489; G0463

== ENCOUNTER → 2024-10-29 | Outpatient (CLI) | payer MEDICARE, MEDICAID, SELFPAY ==
[2024-10-29 09:40] LABS: Glucose Estimated Average 140 mg/dL (80-131); Hemoglobin A1C 6.5 % Hgb (4.8-6.0)
[2024-10-29 09:56] LABS: Alanine Aminotransferase 19 U/L (10-49); Albumin, Serum 4.3 gm/dL (3.4-4.8); Albumin/Globulin Ratio 1.7 (1.2-2.2); Alkaline Phosphatase 63 U/L (46-116); Anion Gap 11 (7-16); Aspartate Amino Transferase 19 U/L (0-34); BUN/Creatinine Ratio 16 Ratio (12-20); Bilirubin,Total 0.5 mg/dL (0.3-1.2); Blood Urea Nitrogen 13 mg/dL (9-23); Calcium 9.9 mg/dL (8.3-10.6); Calcium (Corrected) 9.9 mg/dL (8.5-10.1); Carbon Dioxide 27.1 mMol/L (20.0-31.0); Cardiac Risk Estimate 2.5 RATIO (3.7-5.6); Chloride 104 mMol/L (98-107); Cholesterol 142 mg/dL (132-200); Creatinine (Component) 0.8 mg/dL (0.6-1.3); Globulin 2.5 gm/dL (2.3-3.5); Glucose 131 mg/dL (74-106); HDL Cholesterol 56 mg/dL (40-60); LDL Cholesterol,Calculated 66 mg/dL (0-130); Osmolality,Calculated 285 (275-295); Potassium 5.0 mMol/L (3.4-5.1); Sodium 142 mMol/L (136-145); Thyroid Stimulating Hormone 2.02 uIU/mL (0.55-4.78); Total Protein 6.8 gm/dL (5.7-8.2); Triglycerides 98 mg/dL (30-150); eGFR > 60 See Note
== END | disposition home or self-care (01) ==
LOC: COPL 07:53
PROVIDERS: PCP Internal Medicine; Referring Provider Internal Medicine; Visit Provider Internal Medicine
DX: E11.9 Type 2 diabetes mellitus without complications (principal); I10 Essential (primary) hypertension; E78.5 Hyperlipidemia, unspecified
CPT/HCPCS: 36415; 80053; 80061; 83036; 84443

== ENCOUNTER → 2024-11-29 | Outpatient (CLI) | payer MEDICARE, MEDICAID, SELFPAY ==
[2024-11-29 11:46] LABS: Misc Send Out* See Sep Rpt
== END | disposition home or self-care (01) ==
LOC: COPL 11:32 → SLDO 11:32
PROVIDERS: Referring Provider Internal Medicine Endocrinology, Diabetes & Metabolism; Visit Provider Internal Medicine Endocrinology, Diabetes & Metabolism
DX: E21.3 Hyperparathyroidism, unspecified (principal)
CPT/HCPCS: 86335

== ENCOUNTER → 2024-12-31 | Outpatient (CLI) | payer MEDICARE, MEDICAID, SELFPAY ==
[2024-12-31 11:54] LABS: Basophils # (Auto) 0.0 Thou/mm3 (0.0-0.2); Basophils % (Auto) 0 % (0-2.5); Eosinophils # (Auto) 0.1 Thou/mm3 (0.0-0.5); Eosinophils % (Auto) 1 % (0-10); Hematocrit 40.8 % (36.0-46.0); Hemoglobin 13.6 g/dL (12.0-16.0); Immature Granulocytes Auto 0.03 Thou/mm3 (0.00-0.00); Lymphocytes # (Auto) 2.9 Thou/mm3 (1.0-4.8); Lymphocytes % (Auto) 27 % (10-50); Mean Corpuscular HGB Conc 33.3 g/dl (31.0-37.0); Mean Corpuscular Hemoglobin 30.0 pg (25.0-35.0); Mean Corpuscular Volume 90 fL (80-100); Monocytes # (Auto) 0.7 Thou/mm3 (0.0-0.8); Monocytes % (Auto) 7 % (0-12); Neutrophils # (Auto) 7.0 Thou/mm3 (1.8-7.7); Neutrophils % (Auto) 65 % (37-80); Nucleated Red Blood Cell # 0.00 Thou/mm3 (0.00-0.00); Nucleated Red Blood Cell % 0 /100 WBC (0); Platelet Count 416 Thou/mm3 (140-440); RDW Standard Deviation 42.5 fL (36.4-46.3); Red Blood Count 4.54 Miln/mm3 (4.00-5.20); White Blood Count 10.7 Thou/mm3 (3.6-11.0)
[2024-12-31 12:24] LABS: Alanine Aminotransferase 32 U/L (10-49); Albumin, Serum 4.9 gm/dL (3.4-4.8); Albumin/Globulin Ratio 1.9 (1.2-2.2); Alkaline Phosphatase 74 U/L (46-116); Anion Gap 13 (7-16); Aspartate Amino Transferase 25 U/L (0-34); BUN/Creatinine Ratio 18 Ratio (12-20); Bilirubin,Total 0.6 mg/dL (0.3-1.2); Blood Urea Nitrogen 18 mg/dL (9-23); Calcium 9.9 mg/dL (8.3-10.6); Calcium (Corrected) 9.9 mg/dL (8.5-10.1); Carbon Dioxide 24.3 mMol/L (20.0-31.0); Chloride 100 mMol/L (98-107); Creatinine (Component) 1.0 mg/dL (0.6-1.3); Globulin 2.6 gm/dL (2.3-3.5); Glucose 232 mg/dL (74-106); Osmolality,Calculated 282 (275-295); Potassium 5.0 mMol/L (3.4-5.1); Sodium 137 mMol/L (136-145); Total Protein 7.5 gm/dL (5.7-8.2); eGFR 60 See Note
== END | disposition home or self-care (01) ==
LOC: SCTO 10:24
PROVIDERS: PCP Internal Medicine; Referring Provider Internal Medicine Hematology & Oncology; Visit Provider Internal Medicine Hematology & Oncology
DX: D50.9 Iron deficiency anemia, unspecified (principal)
CPT/HCPCS: 36415; 80053; 85025

== ENCOUNTER 2025-01-03 09:30 | Outpatient (RCR) | payer MEDICARE, MEDICAID, SELFPAY | END 2025-01-16 23:59 | disposition home or self-care (01) | LOC: SCTC 09:30 | PROVIDERS: PCP Internal Medicine; Referring Provider Internal Medicine; Visit Provider Nurse Practitioner Family | DX: D50.9 Iron deficiency anemia, unspecified (principal); M81.0 Age-related osteoporosis without current pathological fracture; Z85.3 Personal history of malignant neoplasm of breast; Z90.11 Acquired absence of right breast and nipple; Z92.21 Personal history of antineoplastic chemotherapy; Z92.29 Personal history of other drug therapy; E21.3 Hyperparathyroidism, unspecified | CPT/HCPCS: 99212; G0463 ==

== ENCOUNTER → 2025-01-05 | Outpatient (CLI) | payer MEDICARE, MEDICAID, SELFPAY ==
--- NOTE | 2025-01-05 10:47 | XR_ITS ---
Examination: Screening digital mammography, unilateral l left Computer aided detection 3-D breast Tomosynthesis, unilateral Date and time of exam: January 05, 2025, 1052 hours, compared to mammograms dating to February 14, 2021 Indication: Screening Technique: Nonmagnified MLO, CC views of the l left breast to been obtained, reconstructed from 3-D Tomosynthesis images. R2 computer aided detection program utilized for evaluation of suspicious masses and/or abnormal calcifications. 3-D Tomosynthesis images obtained. Findings: The breast is heterogeneously dense, which may obscure small masses Stable focal asymmetry inner left breast Benign calcifications The breast architecture is nodular although definite suspicious mass not depicted Impression: BI-RADS category II Benign findings Recommend 1 year follow-up mammogram. Recommend baseline left breast sonography follow-up given the nodular heterogeneous breast architecture
== END | disposition home or self-care (01) ==
LOC: CDIM 10:44
PROVIDERS: Referring Provider Internal Medicine Hematology & Oncology; Visit Provider Internal Medicine Hematology & Oncology
DX: Z12.31 Encounter for screening mammogram for malignant neoplasm of breast (principal); R92.322 Mammographic fibroglandular density, left breast; N64.89 Other specified disorders of breast
CPT/HCPCS: 77063; 77067

== ENCOUNTER → 2025-01-10 | Outpatient (CLI) | payer MEDICARE, MEDICAID, SELFPAY ==
[2025-01-10 09:33] LABS: Basophils # (Auto) 0.1 Thou/mm3 (0.0-0.2); Basophils % (Auto) 1 % (0-2.5); Eosinophils # (Auto) 0.2 Thou/mm3 (0.0-0.5); Eosinophils % (Auto) 1 % (0-10); Hematocrit 38.8 % (36.0-46.0); Hemoglobin 12.9 g/dL (12.0-16.0); Immature Granulocytes Auto 0.03 Thou/mm3 (0.00-0.00); Lymphocytes # (Auto) 3.3 Thou/mm3 (1.0-4.8); Lymphocytes % (Auto) 28 % (10-50); Mean Corpuscular HGB Conc 33.2 g/dl (31.0-37.0); Mean Corpuscular Hemoglobin 29.7 pg (25.0-35.0); Mean Corpuscular Volume 89 fL (80-100); Monocytes # (Auto) 0.8 Thou/mm3 (0.0-0.8); Monocytes % (Auto) 7 % (0-12); Neutrophils # (Auto) 7.6 Thou/mm3 (1.8-7.7); Neutrophils % (Auto) 64 % (37-80); Nucleated Red Blood Cell # 0.00 Thou/mm3 (0.00-0.00); Nucleated Red Blood Cell % 0 /100 WBC (0); Platelet Count 386 Thou/mm3 (140-440); RDW Standard Deviation 42.2 fL (36.4-46.3); Red Blood Count 4.34 Miln/mm3 (4.00-5.20); White Blood Count 11.9 Thou/mm3 (3.6-11.0)
[2025-01-10 09:50] LABS: Alanine Aminotransferase 31 U/L (10-49); Albumin, Serum 4.5 gm/dL (3.4-4.8); Albumin/Globulin Ratio 1.8 (1.2-2.2); Alkaline Phosphatase 66 U/L (46-116); Anion Gap 9 (7-16); Aspartate Amino Transferase 22 U/L (0-34); BUN/Creatinine Ratio 20 Ratio (12-20); Bilirubin,Total 0.4 mg/dL (0.3-1.2); Blood Urea Nitrogen 16 mg/dL (9-23); Calcium 8.9 mg/dL (8.3-10.6); Calcium (Corrected) 8.9 mg/dL (8.5-10.1); Carbon Dioxide 26.6 mMol/L (20.0-31.0); Chloride 102 mMol/L (98-107); Creatinine (Component) 0.8 mg/dL (0.6-1.3); Globulin 2.5 gm/dL (2.3-3.5); Glucose 124 mg/dL (74-106); Osmolality,Calculated 277 (275-295); Potassium 5.3 mMol/L (3.4-5.1); Sodium 138 mMol/L (136-145); Total Protein 7.0 gm/dL (5.7-8.2); eGFR > 60 See Note
== END | disposition home or self-care (01) ==
PROVIDERS: PCP Internal Medicine; Referring Provider Internal Medicine Hematology & Oncology; Visit Provider Internal Medicine Hematology & Oncology
DX: D50.9 Iron deficiency anemia, unspecified (principal)
CPT/HCPCS: 36415; 80053; 85025

== ENCOUNTER 2025-01-26 12:49 | Outpatient (RCR) | payer MEDICARE, MEDICAID, SELFPAY | END 2025-02-16 23:59 | disposition home or self-care (01) | LOC: SCTC 12:49 | PROVIDERS: PCP Internal Medicine; Referring Provider Internal Medicine; Visit Provider Nurse Practitioner Family | DX: M81.0 Age-related osteoporosis without current pathological fracture (principal); E21.3 Hyperparathyroidism, unspecified; Z86.2 Personal history of diseases of the blood and blood-forming organs and certain disorders involving the immune mechanism; Z85.3 Personal history of malignant neoplasm of breast; Z90.11 Acquired absence of right breast and nipple; Z92.21 Personal history of antineoplastic chemotherapy | CPT/HCPCS: 96365; J3489; J7030 ==